=== PATIENT | male | born 1965 | race Hispanic/Latino ===

== ENCOUNTER 2021-02-21 15:42 | Inpatient (IN) | payer SELFPAY ==
[~2021-02-21] VITALS: Ht 177.8 cm; Wt 107.0 kg
[2021-02-21] MEDS ORDERED: BENZONATATE100 MG PO (16:59)
== END 2021-02-26 13:00 | disposition short-term general hospital (02) | DRG 208 ==
LOC: ED 15:42 → CCU 20:02 → MS 02-22 15:55 → CCU 02-26 06:03
PROVIDERS: ADMIT Internal Medicine; ATTEND Internal Medicine
PROC: XW033E5 Introduction of Remdesivir Anti-infective into Peripheral Vein, Percutaneous Approach, New Technology Group 5 (ICD-10-PCS; principal; 2021-02-21)
PROC: 3E0DX3Z Introduction of Anti-inflammatory into Mouth and Pharynx, External Approach (ICD-10-PCS; 2021-02-21)
PROC: 5A1935Z Respiratory Ventilation, Less than 24 Consecutive Hours (ICD-10-PCS; 2021-02-26)
PROC: 0BH18EZ Insertion of Endotracheal Airway into Trachea, Via Natural or Artificial Opening Endoscopic (ICD-10-PCS; 2021-02-26)
DX: U07.1 COVID-19 (principal); J12.82 Pneumonia due to coronavirus disease 2019; J96.01 Acute respiratory failure with hypoxia
CPT/HCPCS: 31500; 36600; 71045; 71260; 80053; 82803; 85025; 94002; 94640; 94660; 94667; 94668; 94760; 94762; 94799; 96374; 96375; 99285-25; A9270; C9113; C9803; J0248; J0456; J0696; J1100; J1650; J1940; J2405; J2704; J3010; J7050; J7060; J8540; Q9967; U0003